=== PATIENT | male | born 1960 | race Caucasian/White ===

== ENCOUNTER 2023-09-16 07:46 | Outpatient (CLI) | payer OTHER, SELFPAY | END 2023-09-16 07:47 | disposition home or self-care (01) | PROVIDERS: PCP Internal Medicine; Visit Provider Internal Medicine | DX: Z12.5 Encounter for screening for malignant neoplasm of prostate (principal); I10 Essential (primary) hypertension; Z13.220 Encounter for screening for lipoid disorders | CPT/HCPCS: 80053; 80061; G0103 ==

== ENCOUNTER 2023-10-28 07:03 | Outpatient (CLI) | payer OTHER, SELFPAY ==
--- NOTE | 2023-10-28 07:15 | US_ITS ---
Patient: CANDELARIO BONDS Facility:?[facility] Patient ID:?[id number] Site Patient ID:?[id number] Site :?[id number] Study:?US-Abdomen AAA screening-10/28/2023 7:42:23 AM Ordering Physician:ANGIE Final Report: Examination: US abdominal aorta Indication: Abdominal aortic aneurysm screening. Technique: Ceballos scale and color Doppler images of the aorta and common iliac arteries are obtained. Comparison: None Findings: Proximal aorta: 1.6 x 1.5 cm Mid aorta: 1.7 x 1.8 cm Distal aorta: 1.4 x 1.8 cm Right common iliac artery: 1.0 x 1.1 cm Left common iliac artery: 1.0 x 1.1 cm Impression: No abdominal aortic aneurysm. Dictated by Yong Vasquez MD @ 10/28/2023 8:18:41 AM Signed by:?Yong Vasquez MD @10/28/2023 8:18:41 AM (Electronic Signature)
== END 2023-10-28 07:04 | disposition home or self-care (01) ==
PROVIDERS: PCP Internal Medicine; Visit Provider Internal Medicine
DX: Z13.6 Encounter for screening for cardiovascular disorders (principal)
CPT/HCPCS: 76706

== ENCOUNTER 2023-11-14 09:04 | Outpatient (CLI) | payer OTHER, SELFPAY ==
--- NOTE | 2023-11-14 10:18 | W.ANESCHARGE ---
Anesthesia Charges Start Date/Time Anesthesia Start Date: 11/14/23 Anesthesia Start Time: 09:32 Stop Date/Time Anesthesia Stop Date: 11/14/23 Anesthesia Stop Time: 10:05
--- OUTSIDE RECORDS SUMMARY | 2023-11-21 12:18 | XMS_ITS | Continuity of Care Document ---
Author Name Unknown Organization [facility] Address [address] [address] [place] [address] Phone Care Team Providers Care Band Splicer Name Role Phone Unavailable Unavailable Unavailable Procedures Procedure Date Genoveva Visit E&m [facility] 12 Ugi Endo; W/remov Fb Advance Directives Directive Yes / No Effective Date File Name No Information Encounters Encounter Description Practice Location Reason(s) For Visit Diagnoses Date Provider Providers Copied on Encounter [facility], [address] [address], [place], [place], [id number], [place] tel:[phone] [facility] No Information 2 No Information Referring Provider: Referral Self, USE FOR SELF REFERRALS. Genoveva Visit E&[facility], [address] [address], [place], [place], [id number], [place] tel:[phone] [facility] No Information 2 Ana [facility]. [address] [facility] [address], [place], [place], [id number], [place]. tel:[phone] Referring Provider: Zach Barbosa MD S, [address] [place] [address], [address]. tel:[phone] Family History Family Member Type Diagnosis Age At Onset No Information Payers Payer name Insurance type Covered republican ID Authoriza tion(s) No Information Social History Type Description Quantity Date Captured Comments Sex Male Smoking Status No Information Chief Complaint And Reason For Visit No Information Reason For Referral Reason For Referral No Information History Of Present Illness Encounter Date Complaint History Of Prese nt Illness No Information Functional Status Date Functional Assessmen t No Information Instructions Date Instruction Additional Infor mation No Information Assessments Type Assessment Date No Information Patient Care Teams Name Effective Dates (start - stop) Status Members No Information
--- OUTSIDE RECORDS SUMMARY | 2023-11-21 12:18 | XMS_ITS | Clinical Summary ---
Author Name Unknown Organization [facility] Address [place], [place] [address] Care Team Providers Care Pot Liner Name Role Phone Pcp, No Primary Care Provider Unavailabl e Allergies Active Allergy Reactions Criticality Noted Date Comments Penicillins *Unknown 10/22/2011 Medications Medication Sig Dispensed Refills Start Date End Date Status sucralfate (CARAFATE) 100 mg/mL suspension Take 10 mL by mouth 4 times daily before meals and at bedtime. Take on empty stomach. 1 Bottle 1 01/15/2012 Active aspirin (ECOTRIN) 81 mg enteric coated tablet Take 1 Tablet (81 mg) by mouth once daily. 90 Tablet 3 07/18/2021 Active clindamycin (CLEOCIN) 300 mg capsule Take 1 Capsule (300 mg) by mouth three times daily until gone. 24 Capsule 06/18/2022 Active aspirin (ECOTRIN) 81 mg enteric coated tablet Take 1 Tablet (81 mg) by mouth once daily. 90 Tablet 1 07/29/2022 Active lisinopril-hydroc hlorothiazide, 20-25 mg, (PRINZIDE, ZESTORETIC) 20-25 mg per tablet Take 1 Tablet by mouth once daily for hypertension. 90 Tablet 3 10/22/2023 Active omeprazole (PRILOSEC) 20 mg Delayed-Release capsule Take 1 Capsule (20 mg) by mouth once daily before a meal for GERD. 90 Capsule 3 10/22/2023 Active lisinopril-hydroc hlorothiazide, 20-25 mg, (PRINZIDE, ZESTORETIC) 20-25 mg per tablet Take 1 Tablet by mouth once daily for hypertension. 90 Tablet 3 10/18/2022 10/22/2023 Discontinued (Reorder (E-cancel not sent)) omeprazole (PRILOSEC) 20 mg Delayed-Release capsule Take 1 Capsule (20 mg) by mouth once daily before a meal for GERD. 90 Capsule 3 10/18/2022 10/22/2023 Discontinued (Reorder (E-cancel not sent)) Active Problems Problem Noted Date Diagnosed Date HTN (hypertension) 11/07/2011 Encounters Date Type Department Care Team Description 11/14/2023 Lab Requisition [facility] [phone] Gerard Jordan MD from Last 3 Months Immunizations Name Administration Dates Next Due Hepatitis B (Adult) 04/17/2004 Family History Medical History Relation Name Comments Diabetes Father Hypertension Father Stroke Father Alcohol/Drug Maternal Aunt Alcohol/Drug Maternal Grandmother Cancer Maternal Grandmother Alcohol/Drug Maternal Uncle Relation Name Status Comments Daughter Alive x1 Father Maternal Aunt Maternal Grandfather Maternal Grandmother Maternal Uncle Mother Alive Paternal Grandfather Paternal Grandmother Sister 1 Alive (Age x2) Sister 2 (Age x1) Son Alive x3 Social History Tobacco Use Types Packs/Day Years Used Date Smoking Tobacco: Never Smokeless Tobacco: Current Chew Alcohol Use Standard Drinks/Week Comments Not Asked 0 (1 standard drink = 0.6 oz pur e alcohol) Sex and Gender Information Value Date Recorded Sex Assigned at Not on file Gender Identity Not on file Sexual Orientation Not on file Obstetrics History Last Filed Vital Signs Vital Sign Reading Time Taken Comments Blood Pressure 117/71 01/15/2012 9:48 PM CDT Pulse 93 01/15/2012 9:48 PM CDT Temperature 36.8 ??C (98.2 ??F) 01/15/2012 5:11 PM CD T Respiratory Rate 16 01/15/2012 10:00 PM CDT Oxygen Saturation 97% 01/15/2012 9:48 PM CDT Inhaled Oxygen Concentration - - Weight 90.7 kg (200 lb) 01/15/2012 5:11 PM CDT Height 177.8 cm (5' 10) 01/15/2012 5:11 PM CDT Body Mass Index 28.7 01/15/2012 5:11 PM CDT Plan of Treatment Health Maintenance Due Date Last Done Comments Tdap 1970 Depression screening for age 12+ 1971 HIV for age 15-65 1974 BMI (ht and wt on same day) for age 18+ 1977 Hepatitis C screening for ag e 18-79 1977 Tetanus booster 1979 Colonoscopy through age 75 01/18/2004 Lipids for age 45-75 01/18/2004 Zoster (shingles) series for age 50+ (1 of 2) 2009 COVID-19 vaccine series ( season) 2023 Influenza for age 50-64 04/18/2024 Pneumococcal series for age 6-64 Aged Out No longer eligible based on patient's age to complete this topic Procedures Procedure Name Priority Date/Time Associated Diagnosis Comments LAB TRACKING EVENT Routine 11/14/2023 9: 50 AM CDT PATH TISSUE EXAM Routine 11/14/2023 9:50 AM CDT from Last 3 Months Results * LAB TRACKING EVENT (11/14/2023 9:50 AM CDT) Other (Other) Client Collect / Unknown 11/14/2023 9:50 AM CDT 11/14/2023 9:18 PM CDT Gerard Jordan MD LAB BILL ONLY [facility] [address] [place] [address], * PATH TISSUE EXAM (11/14/2023 9:50 AM CDT) Case Report Pathology Report ?Case: [id number] ? Authorizing Provider: ??Gerard Jordan MD ?Collected: ? 11/14/2023 0950 ? Ordering Location: ? [facility] ?Received: ?11/15/2023 0533 ? Pathologist: ? Jessica Bauer MD ? Specimens: ?? A) - Transverse Colon Biopsy ? B) - Descending Colon Biopsy ? 11/17/2023 10:26 AM T [facility] Final Diagnosis A) COLON, TRANSVERSE, POLYPECTOMY: 1. Tubular adenoma 2. Negative for high grade dysplasia 3. Per the colonoscopy report: ?? a. Polyp size: 2 mm ?? b. Resection: Complete ?? c. Retrieval: Complete B) COLON, DESCENDING, POLYPECTOMY: 1. Tubular adenoma 2. Negative for high grade dysplasia 3. Per the colonoscopy report: ?? a. Polyp size: 2 mm ?? b. Resection: Complete ?? c. Retrieval: Complete 11/17/2023 10:26 AM [facility] Clinical Information Colonoscopy. Indications: Screening. Last colonoscopy 2012. Findings: Single 2 mm polyp in transverse and single 2 mm polyp in the descending. Both resected and retrieved. 11/17/2023 10:26 AM [facility] Gross Description A) Received in formalin is a colon mucosal fragment measuring 2 mm in greatest dimension, which is entirely submitted in one cassette. It is labeled with the patient's name and designated transverse polyp. B) Received in formalin are 3 colon mucosal fragments averaging 3 mm in greatest dimension, which are entirely submitted in one cassette. It is labeled with the patient's name and designated descending colon polyp. Charlette Guerrero 11/15/2023 9:15 AM 11/17/2023 10:26 AM CDT [facility] Microscopic Description The final diagnosis is based on microscopic examination of appropriate sections of all specimens. 11/17/2023 10:26 AM CDT [facility] Additional Information Interpreted at [facility] - [address] [place] [address] [address] [address], [place] [address] 11/17/2023 10:26 AM CDT [facility] Other (Transverse Colon Biopsy) 11/14/2023 9:50 AM CDT 11/15/2023 5:33 AM CDT Specimen (specimen) (Descending Colon Biopsy) 11/14/2023 9:50 AM CDT 11/15/2023 5:33 AM CDT Gerard Jordan MD PATHOLOGY/CYTOLOGY [facility] [address] [place] [address], from Last 3 Months Advance Directives * Full Code (Latest Code Status on File) Date Activated Date Inactivated Comments 01/15/2012 6:52 PM 01/15/2012 8:14 PM Care Teams Pot Liner Relationship Specialty Start Date End Date Pcp, No . PCP - General 03/21/15
== END 2023-11-14 09:05 | disposition home or self-care (01) ==
LOC: OP CLINIC 09:05
PROVIDERS: PCP Internal Medicine; Visit Provider Internal Medicine
DX: Z12.11 Encounter for screening for malignant neoplasm of colon (principal); K63.5 Polyp of colon; K57.30 Diverticulosis of large intestine without perforation or abscess without bleeding
CPT/HCPCS: 00811; 45380; 88305; J2704

== ENCOUNTER 2024-10-26 07:54 | Outpatient (CLI) | payer MEDICARE, OTHER, SELFPAY | END 2024-10-26 07:55 | disposition home or self-care (01) | LOC: NFLDREF 10-28 23:01 | PROVIDERS: PCP Internal Medicine; Referring Provider Internal Medicine; Visit Provider Internal Medicine | DX: I10 Essential (primary) hypertension (principal); Z12.5 Encounter for screening for malignant neoplasm of prostate; Z13.6 Encounter for screening for cardiovascular disorders | CPT/HCPCS: 80053; 80061; G0103 ==